=== PATIENT | male | born 1970 | race Caucasian/White ===

== ENCOUNTER 2025-02-17 05:51 | Day surgery (SDC) | payer MEDICARE ==
[2025-02-17] MEDS: Lactated Ringers 1,000 ML IV SCH (06:23)
[2025-02-17] MEDS ORDERED: propofoL IV ONE ×2 (07:56→08:23)
[2025-02-17 08:51] VITALS: RESP 18
[2025-02-17 09:03] VITALS: BP 122/64; PULSE 70; TEMP 97.9; O2SAT 98
--- NOTE | 2025-02-18 11:13 | OP ---
SURGERY DATE/TIME: 02/17/2025 [id number] PREOPERATIVE DIAGNOSIS: Screening colonoscopy. POSTOPERATIVE DIAGNOSIS: Normal colon. PROCEDURE: Colonoscopy. SURGEON: Bebeto Granda MD ANESTHESIA: MAC by Matt Cortes CRNA. ESTIMATED BLOOD LOSS: None. SPECIMENS: None. DESCRIPTION OF PROCEDURE AND FINDINGS: After informed written consent was obtained, the patient was taken to the endoscopy suite. He was placed in the left lateral decubitus position and anesthesia was titrated to desired level of consciousness. Digital rectal exam showed normal sphincter tone and no internal lesions. The scope was inserted into the rectum and, sequentially, the entire colonic mucosa was traversed. Level of cecum was reached and verified with direct visualization of the ileocecal valve. Upon withdrawal, careful mucosal inspection revealed no gross abnormalities. Prep was suboptimal with liquid stool mostly in the sigmoid colon but, overall, exam was felt to be sufficient. Prior to withdrawal, retroflexion showed no internal lesions. The scope was removed and the patient was transferred to the recovery room in good condition.
== END 2025-02-17 09:10 | disposition home or self-care (01) ==
LOC: SDC 05:51
PROVIDERS: ATTEND Family Medicine
DX: Z12.11 Encounter for screening for malignant neoplasm of colon (principal)